=== PATIENT | female | born 1950 | race Caucasian/White ===

== ENCOUNTER 2019-07-17 10:28 | Emergency (ER) | payer MEDICARE ==
[2019-07-17 10:55] LABS: #Basophils 0.1 thou/uL (0.0-0.2); #Lymphocytes 2.5 thou/uL (1.20-3.40); #Monocytes 0.5 thou/uL (0.11-0.59); #Neutrophils 4.6 thou/uL (1.40-6.50); %Basophils 1.2 % (0.0-1.0); %Eosinophils 0.3 % (0.0-10.0); %Lymphocytes 31.9 % (21.0-51.0); %Monocytes 6.2 % (0.0-10.0); %Neutrophils 60.4 % (42.0-75.0); Hemoglobin 13.2 g/dL (12.0-16.0); Mean Corpuscular HGB CONC 33.2 g/dL (32.0-36.0); Mean Corpuscular Hemoglobin 29.3 pg (27.0-31.0); Mean Corpuscular Volume 88.3 fL (78.0-98.0); Mean Platelet Volume 7.1 fL (7.4-10.4); Platelet Count 362 thou/uL (130-400); RBC Distribution Width 12.2 % (11.5-14.5); Red Blood Cell (RBC) Count 4.49 mill/uL (4.20-5.40); White Blood Cell (WBC) Count 7.7 thou/uL (4.8-10.8)
[2019-07-17 11:11] LABS: ALT (SGPT) 15 U/L (8-55); AST (SGOT) 19 U/L (5-34); Albumin 4.6 g/dL (3.4-4.8); Alkaline Phosphatase 110 U/L (40-110); Anion Gap 15 mmol/L (10-20); BUN (Urea Nitrogen) 15 mg/dL (9.8-20.1); Bilirubin, Total 0.4 mg/dL (0.2-1.2); Calc. Creatinine Clearance 0 mL/min (70-130); Calcium 9.7 mg/dL (7.8-10.44); Carbon Dioxide 23 mmol/L (23-31); Chloride 105 mmol/L (98-107); Estimated GFR-MDRD 48; Globulin 2.8 g/dL (2.4-3.5); Glucose 106 mg/dL (80-115); Potassium 3.9 mmol/L (3.5-5.1); Protein, Total 7.4 g/dL (6.0-8.3); Sodium 139 mmol/L (136-145)
[2019-07-17 11:30] LABS: Bilirubin Negative (Negative); Blood, Urine Negative (Negative); Clarity Clear (Clear); Glucose, Urine (Dipstick) Negative (Negative); Leukocyte Negative (Negative); Nitrite Negative (Negative); Protein, Urine (Dipstick) Negative (Neg-Trace); Urobilinogen 0.2 mg/dL (Less than 2)
--- NOTE | 2019-07-17 20:21 | RAD ---
PORTABLE CHEST: 07/17/19 An AP portable film at 1048 is compared with a 11/02/18 study. The heart is normal in size and the lungs are clear. No acute infiltrate or effusion was seen. The c ardiac pacer is in place. The mediastinum was unremarkable. IMPRESSION: No acute thoracic findings. POS: HOME
== END 2019-07-17 12:19 | disposition home or self-care (01) ==
LOC: BURERS 10:28
DX: E86.0 Dehydration (principal); K50.90 Crohn's disease, unspecified, without complications; R06.00 Dyspnea, unspecified; F17.210 Nicotine dependence, cigarettes, uncomplicated; Z71.6 Tobacco abuse counseling
CPT/HCPCS: 71045; 80053; 81003; 83605; 83880; 84443; 84484; 85025; 87804; 93005; 94760; 96360; 99406

== ENCOUNTER 2019-12-27 18:59 | Emergency (ER) | payer MEDICARE ==
[~2019-12-27 18:59] MED LIST: Iopamidol 370 76% 100 ML VIAL ONE
[2019-12-27] MEDS ORDERED: Morphine 4 MG/ML VIAL ONE (19:33)
[2019-12-27] MEDS ORDERED: diphenhydrAMINE 50 MG/ML VIAL ONE (19:33)
[2019-12-27 19:51] LABS: #Basophils 0.1 thou/uL (0.0-0.2); #Eosinphils 0.1 thou/uL (0.0-0.7); #Lymphocytes 3.1 thou/uL (1.20-3.40); #Monocytes 0.7 thou/uL (0.11-0.59); #Neutrophils 6.4 thou/uL (1.40-6.50); %Basophils 1.1 % (0.0-1.0); %Eosinophils 0.7 % (0.0-10.0); %Monocytes 6.4 % (0.0-10.0); %Neutrophils 61.8 % (42.0-75.0); Hemoglobin 11.4 g/dL (12.0-16.0); Mean Corpuscular HGB CONC 31.6 g/dL (32.0-36.0); Mean Corpuscular Hemoglobin 29.4 pg (27.0-31.0); Mean Platelet Volume 6.7 fL (7.4-10.4); Platelet Count 289 thou/uL (130-400); RBC Distribution Width 12.1 % (11.5-14.5); Red Blood Cell (RBC) Count 3.89 mill/uL (4.20-5.40); White Blood Cell (WBC) Count 10.4 thou/uL (4.8-10.8)
[2019-12-27] MEDS ORDERED: Morphine 2 MG/ML SYRINGE ONE ×3 (19:53→21:23)
[2019-12-27 19:55] LABS: Bilirubin Negative (Negative); Blood, Urine Trace (Negative); Clarity Clear (Clear); Glucose, Urine (Dipstick) Negative (Negative); Ketone, Urine Negative (Negative); Leukocyte Negative (Negative); Nitrite Negative (Negative); Protein, Urine (Dipstick) Negative (Neg-Trace); Urobilinogen 0.2 mg/dL (Less than 2); pH, Urine 5.5 (5.0-9.0)
[2019-12-27 19:57] LABS: Specific Gravity, Urine 1.019 (1.002-1.036)
[2019-12-27 20:05] LABS: Bacteria/HPF 2+ HPF (None Seen); RBC/HPF 0-3 HPF (0-3); Squamous Epithelial 0-3 HPF (0-3); WBC/HPF 0-3 HPF (0-3)
[2019-12-27 20:06] LABS: ALT (SGPT) 10 U/L (8-55); AST (SGOT) 13 U/L (5-34); Albumin 3.8 g/dL (3.4-4.8); Alkaline Phosphatase 80 U/L (40-110); Anion Gap 13 mmol/L (10-20); BUN (Urea Nitrogen) 20 mg/dL (9.8-20.1); Bilirubin, Total 0.3 mg/dL (0.2-1.2); Calc. Creatinine Clearance 0 mL/min (70-130); Calcium 8.8 mg/dL (7.8-10.44); Carbon Dioxide 25 mmol/L (23-31); Chloride 105 mmol/L (98-107); Estimated GFR-MDRD 45; Globulin 2.5 g/dL (2.4-3.5); Glucose 75 mg/dL (80-115); Lipase 28 U/L (8-78); Potassium 4.2 mmol/L (3.5-5.1); Protein, Total 6.3 g/dL (6.0-8.3); Sodium 139 mmol/L (136-145)
--- NOTE | 2019-12-27 21:26 | CT ---
CT ABDOMEN AND PELVIS: Date: 12-27-2019 Comparison: 11-02-18 History: Abdominal pain. Technique: Axial CT imaging at 5 mm intervals from the lung bases through the pubic symphysis with IV contrast. Coronal and sagittal reformatted imaging obtained. FINDINGS: Partially visualized breast implants are present. Incompletely imaged transvenous pacing device noted . Imaged lung bases unremarkable. No free intraperitoneal air. The liver, gallbladder, spleen, pancreas, adrenal glands, and kidneys appear unremarkable. The lack of oral contrast media limits assessment of the bowel. There is fluid within a nondilated stomach. The proximal portion of the horizontal segment of the duo denum is fluid filled and mildly distended measuring approximately 3 cm in transverse dimension. Post operative clips are seen in the region of the proximal colon within the right lower quadrant and the re are post operative clips within the anterior mesentery on the right. There are fluid filled dilate d loops of small bowel within the mid left abdomen measuring up to 3.1 cm in transverse dimension. Th is is a new finding when compared to the prior examination. There is a loop of bowel containing fecal material within the midline central lower abdomen on axial image 50 which is suspicious for a loop o f small bowel containing fecal material. There is adjacent mild stranding of the mesenteric fat, new as well. There is extensive atherosclerotic calcification of the infrarenal abdominal aorta and the arterial s tructures of the pelvis. There is no lymphadenopathy apparent within the abdomen or pelvis. Review of the osseous structures demonstrates no worrisome lytic or blastic bone lesion. There is degenerativ e change at the lumbosacral junction and there is facet hypertrophy of the lower lumbar spine. IMPRESSION: Interval development of dilated fluid filled loops of small bowel within the mid left abdomen/left lo wer quadrant with mild adjacent mesenteric fat stranding and probable small bowel fecal material dist ally. Findings are suspicious for small bowel obstruction. Short term follow up imaging following vanna atment advised. POS: OFF
== END 2019-12-27 21:35 | disposition short-term general hospital (02) ==
LOC: BURERS 18:59
DX: K56.609 Unspecified intestinal obstruction, unspecified as to partial versus complete obstruction (principal); E78.5 Hyperlipidemia, unspecified; F17.210 Nicotine dependence, cigarettes, uncomplicated; Z79.899 Other long term (current) drug therapy; Z79.891 Long term (current) use of opiate analgesic; Z79.82 Long term (current) use of aspirin
CPT/HCPCS: 74177; 80053; 81003; 81015; 83605; 83690; 84484; 85025; 85379; 87086; 93005; 94760; 96361; 96374; 96375; 96376; J1200; J2270; Q9967

== ENCOUNTER 2020-10-01 09:59 | Outpatient (CLI) | payer MEDICARE | END 2020-10-01 10:00 | disposition home or self-care (01) | LOC: BURCT 09:59 | PROVIDERS: ATTEND Family Medicine | DX: M54.5 Low back pain (principal); M25.551 Pain in right hip; R91.1 Solitary pulmonary nodule; M47.816 Spondylosis without myelopathy or radiculopathy, lumbar region; M43.17 Spondylolisthesis, lumbosacral region | CPT/HCPCS: 71270; 72100 ==